=== PATIENT | male | born 1995 | race Caucasian/White ===

== ENCOUNTER → 2023-12-21 | Outpatient (REF) | payer MEDICARE, SELFPAY | LOC: DHSLP | PROVIDERS: ATTENDING PHYSICIAN Internal Medicine Critical Care Medicine | DX: G47.33 Obstructive sleep apnea (adult) (pediatric) (principal) | CPT/HCPCS: 95800 ==

== ENCOUNTER 2024-03-05 06:16 | Emergency (ER) | payer MEDICARE, SELFPAY ==
[2024-03-05 06:18] VITALS: BP 170/120
[2024-03-05 06:31] VITALS: BMI 22.0
--- NOTE | 2024-03-05 07:03 | ED.GENMED ---
History of Present Illness
General
Chief Complaint: Crisis Evaluation
Time Seen by Provider: 03/05/24 07:03
History of Present Illness
History of Present Illness:
HPI: Pt presents with concerns for substance abuse. He states he has been drinking alcohol and also uses marijuana. He came back today after leaving [facility] days ago. He is currently homeless and used to live in [place]. He
denies any specific complaints.
EXAM:
GENERAL: The patient has a general and is somewhat poorly
HEENT: Moist oral mucosa, periorbital edema noted
CARDIOVASCULAR: No murmurs, normal heart rate, regular rhythm, No chest wall tenderness
PULMONARY: No respiratory distress, breath sounds are clear and equal
ABDOMEN: Soft with no peritoneal signs, no tenderness
NEUROLOGIC: Excellent strength all extremities, no coordination deficits
PSYCHIATRIC: Appropriate mental status, normal insight and judgement
EXTREMITIES: Nontender, no edema, moves all extremities equally
SKIN: No rash, no lesions
TIME OF INITIAL ENCOUNTER: 7:45 AM
NUMBER AND COMPLEXITY OF PROBLEMS ADDRESSED AT THE ENCOUNTER
� Chronic conditions affecting care: History of substance abuse, alcohol use, reports history of kidney transplant with functioning kidney
� Acute Exacerbation and/or Progression of Chronic Illness: This is an acute on chronic problem
� Differential Diagnosis includes: Substance use, alcohol use, worsening kidney disease
AMOUNT AND/OR COMPLEXITY OF DATA TO BE REVIEWED AND ANALYZED
� I performed an independent evaluation of and my interpretation is:
EKG:
CT:
X-rays:
Laboratory Studies: White count 5.3, hemoglobin 10.6, creatinine is 1.6
Other:
� Review of other/old records: The patient was here with dehydration of 2021; old records show improvement of hemoglobin and creatinine
� Clinical information was obtained by an independent historian: None needed
� Prescriptions/Medications Considered but not given:
� Further testing considered but not performed:
RISK OF COMPLICATIONS AND/OR MORBIDITY OR MORTALITY OF PATIENT MANAGEMENT
� Social determinants of health affecting care: He states he is homeless; used to live in [place]
� Discussion with other providers: I spoke to Khanh from [facility] [place] who will evaluate the patient around 9:30 AM
� Escalation of care including admission/observation vs risk of discharge considered: The patient was hypertensive upon arrival here. We did give blood pressure medication. Khanh is currently (12:20 PM) bed searching. However
he does report this could be difficult as his ID is [place] identification and insurance is questionable at this time. I spoke to Khanh again at 1 PM, he states he has been accepted at an [facility] in [place] and they will be here in about an
hour for transportation
Past History
Past History
ED Past Medical History: Psychiatric (a/d, substance abuse) and Other (Cystinosis)
ED Past Surgical History: Other (renal transplant ')
Phy Exam
Physical Exam
Physical Exam:
See HPI
Course
Orders/Labs/Results
Orders:
Orders
03/05/24 07:30
Alcohol Urgent
Complete Blood Count/With Diff Urgent
Comprehensive Metabolic Panel Urgent
03/05/24 07:48
Labetalol [Trandate] 200 mg PO NOW STA
03/05/24 11:35
Drug Screen, Urine [Urine Drug Abuse Screen] Urgent
Date Specimen was Collected: 03/05/24
Time Specimen was Collected: 11:33
Abnormal Lab Results
03/05/24 03/05/24
07:30 11:35
RBC 3.82 L 10^6/uL
(4.70-6.10)
Hgb 10.6 L g/dL
(13.0-18.0)
Hct 32.2 L %
(39.0-52.0)
MCHC 32.9 L g/dL
(33.0-37.0)
Immature Gran % 0.6 H %
(0-0.5)
Chloride 109 H mmol/L
(98-107)
BUN 34 H mg/dl
(9-20)
Creatinine 1.6 H mg/dL
(0.7-1.3)
Glucose 125 H mg/dl
(70-99)
U Marijuana (THC) Screen Positive H
(Negative)
03/05/24 07:30
03/05/24 07:30
Vital Signs
Initial and Last Documented VS:
Initial Vital Signs
Temp Pulse Resp BP Pulse Ox
98.1 F 98 22 170/120 100
03/05/24 06:18 03/05/24 06:18 03/05/24 06:18 03/05/24 06:18 03/05/24 06:18
Last Documented Vital Signs
Temp Pulse Resp BP Pulse Ox
98 F 97 22 140/100 97
03/05/24 12:52 03/05/24 12:52 03/05/24 06:18 03/05/24 12:52 03/05/24 12:52
*Critical Care Note
Total Time (30-74mins, 75-104mins- exclusive of procedures): Not Applicable
ED Attending Note
-
Portions of this chart may have been created with voice recognition software.� Occasional wrong word or��sound alike� substitutions may have occurred due to the inherent limitations of voice recognition software.
Discharge Plan
Departure
Prescriptions:
No Action
labetalol 200 mg tablet
600 mg PO TID
trazodone 50 mg tablet
50 mg PO HS
nifedipine 60 mg Tablet Extended Release
60 mg PO BID
lamotrigine 100 mg tablet
100 mg PO BID
aripiprazole 10 mg tablet
10 mg PO DAILY
bupropion HCl 150 mg tablet extended release 24 hr
150 mg PO DAILY
Vivitrol 380 mg suspension,extended rel recon
380 mg IM MONTHLY
Cystaran 0.44 % drops
1 drp ophthalmic (eye)
Procysbi 300 mg granules del release in packet
300 mg PO QID
cefdinir 300 mg capsule
300 mg PO BID Qty: 20 0RF
Referrals:
NONE,* [Family Provider] -
Interventions
Interventions:
*Risk Screen - Suicide Last Done: 03/05/24 06:18
*General Assessment Last Done: 03/05/24 06:32
*Neglect/Abuse Screening Last Done: 03/05/24 06:18
ED- Fall Risk Assessment Last Done: 03/05/24 06:40
*ED COVID-19 Vaccine History Last Done: 03/05/24 06:32
ED-Psychological Assessment Last Done: 03/05/24 06:28
Discharge Date and Time
Print Language: NORWEGI[place]
[2024-03-05 07:37] VITALS: BP 144/108
[2024-03-05 07:40] LABS: % Basophils 0.6 % (0-2); % Eosinophils 2.8 % (0-6); % Immature Granulocytes 0.6 % (0-0.5); % Lymphocytes 27.1 % (20.5-51.1); % Monocytes 7.2 % (1.7-9.3); % Neutrophils 61.7 % (42.2-75.2); Absolute Eosinophils 0.2 10^3/uL (0-0.7); Absolute Lymphocytes 1.4 10^3/uL (1.2-3.4); Absolute Monocytes 0.4 10^3/uL (0.1-0.6); Absolute Neutrophils 3.3 10^3/uL (1.4-6.5); Hematocrit 32.2 % (39.0-52.0); Hemoglobin 10.6 g/dL (13.0-18.0); Mean Corp Hgb Conc. 32.9 g/dL (33.0-37.0); Mean Corpuscular Hgb 27.7 pg (27.0-31.0); Mean Corpuscular Volume 84.3 fL (80.0-94.0); Mean Platelet Volume 9.6 fL (7.4-10.4); Nucleated Red Blood Cells % 0 % (-); Platelet Count 198 10^3/uL (130-400); Red Blood Cell Count 3.82 10^6/uL (4.70-6.10); Red Cell Dist. Width 14.3 % (11.5-14.5); White Blood Cell Count 5.3 10^3/uL (4.8-10.8)
[2024-03-05 07:54] LABS: ALT (SGPT) 17 U/L (0-50); AST (SGOT) 27 U/L (17-59); Albumin 4.4 g/dl (3.5-5.0); Alkaline Phosphatase 59 U/L (38-126); Blood Urea Nitrogen 34 mg/dl (9-20); Calcium 10.1 mg/dl (8.4-10.2); Carbon Dioxide 26 mmol/L (22-30); Chloride 109 mmol/L (98-107); Estimated Creatinine Clearance 61 ml/min; Glucose 125 mg/dl (70-99); Potassium 4.4 mmol/L (3.5-5.1); Sodium 143 mmol/L (135-145); Total Bilirubin 0.4 mg/dl (0.2-1.3); Total Protein 6.9 g/dl (6.3-8.2); eGFR > 60.00
[2024-03-05 07:55] LABS: Alcohol None Detected
[2024-03-05] MEDS: TRANDATE 200 MG PO (08:40)
[2024-03-05 12:49] LABS: Amphetamines Negative (Negative); Barbiturates Negative (Negative); Benzodiazepines Negative (Negative); Buprenorphine Negative (Negative); Cocaine Negative (Negative); Marijuana Positive (Negative); Methadone Negative (Negative); Methamphetamines Negative (Negative); Opiates Negative (Negative); Phencyclidine Negative (Negative); Tricyclic Antidepressants Negative (Negative)
[2024-03-05 12:52] VITALS: BP 140/100
== END 2024-03-05 14:21 ==
LOC: EMR 06:16
PROVIDERS: EMERGENCY PHYSICIAN Emergency Medicine
DX: F19.10 Other psychoactive substance abuse, uncomplicated (principal); F12.90 Cannabis use, unspecified, uncomplicated; Z59.00 Homelessness unspecified; Z94.0 Kidney transplant status; Z88.1 Allergy status to other antibiotic agents
CPT/HCPCS: 99285; 80053; 80306; 82077; 85025